=== PATIENT | female | born 1980 | race Caucasian/White ===

== ENCOUNTER → 2020-08-22 | Outpatient (CLI) | payer BC ==
--- NOTE | 2020-08-23 07:22 | XR ---
Lumbosacral spine HISTORY: M 54.89 5 views of lumbosacral spine Lumbar vertebral bodies show preserved height, alignment, and bone mineralization. Loss of disc heigh t present especially L4-5 and L5-S1, there is multilevel spondylosis. Sclerosis present in the crew chief ior elements. No evident spondylolysis. IMPRESSION: Degenerative disc disease and facet arthropathy.
--- NOTE | 2020-08-23 07:23 | XR ---
Right foot HISTORY: Pain in heel, M 79.671 3 views of the right foot Mild degenerative change present at the metatarsophalangeal joint of the first digit of the right gaye t. Bone mineralization and alignment are maintained. No fracture or dislocation. There is a plantar c alcaneal spur. IMPRESSION: Plantar spur
--- NOTE | 2020-08-23 08:44 | MM ---
Reason for exam: clinical finding. History: Took hormonal contraceptives for 6 months beginning at age 18. Physical Findings: Nurse did not find any significant physical abnormalities on exam. MG 3D Diag Mammo W/Cad JOSE Bilateral CC, MLO, and XCCL view(s) were taken. The breast tissue is heterogeneously dense. This may lower the sensitivity of mammography. Finding: There is a 10 mm mass. These results were verbally communicated with the patient and result sheet given to the patient on 08/22/20. ASSESSMENT: Incomplete: need additional imaging evaluation, BI-RAD 0 RECOMMENDATION: Ultrasound of both breasts.
--- NOTE | 2020-08-23 08:45 | USB ---
Reason for exam: additional evaluation requested from abnormal screening. History: Took hormonal contraceptives for 6 months beginning at age 18. US Breast Workup Limited JOSE Right limited breast ultrasound including focal area of concern, retroareolar and axilla demonstrates no cystic or solid lesion seen. Left limited breast ultrasound including focal area of concern, retroareolar and axilla demonstrates a 2 x 3 x 2mm round, cystic lesion at 9 o'clock. These results were verbally communicated with the patient and result sheet given to the patient on 08/22/20. ASSESSMENT: Benign, BI-RAD 2 RECOMMENDATION: Routine screening mammogram of both breasts in 1 year.
== END | disposition home or self-care (01) ==
LOC: RADMAMWWP 15:24
PROVIDERS: ATTEND Internal Medicine
DX: M51.37 Other intervertebral disc degeneration, lumbosacral region (principal); M47.817 Spondylosis without myelopathy or radiculopathy, lumbosacral region; R92.8 Other abnormal and inconclusive findings on diagnostic imaging of breast; N63.0 Unspecified lump in unspecified breast; M54.89 Other dorsalgia; M79.671 Pain in right foot; M77.51 Other enthesopathy of right foot and ankle
CPT/HCPCS: 72110; 77062; 77066

== ENCOUNTER → 2022-08-12 | Outpatient (CLI) | payer BC ==
--- NOTE | 2022-08-12 14:26 | MM ---
Reason for Exam: Clinical finding. Last mammogram was performed 1 year(s) and 11 month(s) ago. Patient History: Menarche at age 13. First Full-Term at age 20. Hormonal Contraceptives for 6 months from age 18 until age 18. Risk Values: Paulina 5 year model risk: 0.5%. NCI Lifetime model risk: 9.0%. Prior Study Comparison: 08/22/2020 Bilateral Diagnostic Mammogram, [facility]. 08/22/2020 Bilateral Diagnostic Ultrasound, [facility]. Tissue Density: The breast tissue is heterogeneously dense. This may lower the sensitivity of mammography. Findings: Analyzed By CAD. No worrisome cluster calcifications within either breast. Stable focal asymmetry within the left breast. No new suspicious mass. Patient reports right-sided breast pain. Overall Assessment: Incomplete: need additional imaging evaluation, BI-RAD 0 Management: Diagnostic Breast Ultrasound of the right breast. A clinical breast exam by your physician is recommended on an annual basis and results should be correlated with mammographic findings. This exam should not preclude additional follow-up of suspicious palpable abnormalities. Results were given to the patient verbally at the time of exam. Electronically signed and approved by: Jamie Siegel D.O.
--- NOTE | 2022-08-12 15:36 | USB ---
Reason for Exam: Clinical finding. Patient History: Menarche at age 13. First Full-Term at age 20. Hormonal Contraceptives for 6 months from age 18 until age 18. Risk Values: Paulina 5 year model risk: 0.5%. NCI Lifetime model risk: 9.0%. Technique: Method: Targeted. Prior Study Comparison: 08/22/2020 Bilateral Diagnostic Mammogram, [facility]. Findings: The upper outer quadrant of the right breast and the axilla of the right breast were scanned. Targeted ultrasound of the right breast in the patient's region of pain was obtained from 9-12 o'clock with evaluation of the axilla. Benign-appearing lymph node in the right axilla. No solid or cystic mass identified.. Overall Assessment: Benign, BI-RAD 2 Management: Screening Mammogram of both breasts in 1 year. A clinical breast exam by your physician is recommended on an annual basis and results should be correlated with mammographic findings. This exam should not preclude additional follow-up of suspicious palpable abnormalities. ??Results were given to the patient verbally at the time of exam. Electronically signed and approved by: Jamie Siegel D.O.
== END | disposition home or self-care (01) ==
LOC: RADMAMWWP 13:27
PROVIDERS: ATTEND Family Medicine
DX: N64.4 Mastodynia (principal)
CPT/HCPCS: 77062; 77066

== ENCOUNTER → 2023-12-23 | Outpatient (CLI) | payer BC, OTHER ==
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
== END | disposition home or self-care (01) ==
LOC: RADCTMAIN 13:09
PROVIDERS: ATTEND Podiatrist Foot & Ankle Surgery
DX: M85.871 Other specified disorders of bone density and structure, right ankle and foot (principal); R60.0 Localized edema; S92.901K Unspecified fracture of right foot, subsequent encounter for fracture with nonunion

== ENCOUNTER → 2024-02-08 | Outpatient (CLI) | payer BC ==
--- NOTE | 2024-02-08 10:16 | MM ---
Reason for Exam: Clinical finding. Last mammogram was performed 1 year(s) and 6 month(s) ago. Patient History: Menarche at age 13. First Full-Term at age 20. Hormonal Contraceptives for 6 months from age 18 until age 18. Last menstrual period: 02/06/2024 Risk Values: Paulina 5 year model risk: 0.6%. NCI Lifetime model risk: 8.8%. Prior Study Comparison: 08/22/2020 Bilateral Diagnostic Mammogram, [facility]. 08/22/2020 Bilateral Diagnostic Ultrasound, [facility]. 08/12/2022 Right US breast limited RT, [facility]. 08/12/2022 Bilateral MG 3D diag mammo w/cad JOSE, [facility]. Tissue Density: The breasts are heterogeneously dense, which may obscure small masses. Findings: Analyzed By CAD. No evidence for mass or distortion. No suspicious microcalcifications. Overall Assessment: Incomplete: need additional imaging evaluation, BI-RAD 0 Management: Diagnostic Breast Ultrasound of the right breast. . Results were given to the patient verbally at the time of exam. Patient should continue monthly self-breast exams. A clinical breast exam by your physician is recommended on an annual basis. This exam should not preclude additional follow-up of suspicious palpable abnormalities. Note on Paulina scores and lifetime risk: 1. A Paulina score greater than 3% is considered moderate risk. If this is the case, consider specialist referral to assess eligibility for a risk reducing agent. 2. If overall lifetime risk for the development of breast cancer is 20% or higher, the patient may qualify for future screening with alternating mammogram and breast MRI. Electronically signed and approved by: Nahun Celaya M.D. Radiologis
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
== END | disposition home or self-care (01) ==
LOC: RADMAMWWP 09:46
PROVIDERS: ATTEND Family Medicine
DX: R92.333 Mammographic heterogeneous density, bilateral breasts (principal); N64.4 Mastodynia
CPT/HCPCS: 77062; 77066

== ENCOUNTER → 2024-03-26 | Outpatient (CLI) | payer BC ==
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
== END | disposition home or self-care (01) ==
LOC: RADMRIMAIN 11:34
PROVIDERS: ATTEND Psychiatry & Neurology Neurology
DX: M50.30 Other cervical disc degeneration, unspecified cervical region (principal); M47.892 Other spondylosis, cervical region; F07.81 Postconcussional syndrome; G43.909 Migraine, unspecified, not intractable, without status migrainosus
CPT/HCPCS: 72156; A9585

== ENCOUNTER → 2024-03-26 | Outpatient (CLI) | payer BC ==
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
== END | disposition home or self-care (01) ==
LOC: RADMRIMAIN 11:36
PROVIDERS: ATTEND Family Medicine
DX: R26.89 Other abnormalities of gait and mobility (principal)
CPT/HCPCS: 70553; A9585

== ENCOUNTER → 2024-06-30 | Outpatient (CLI) | payer BC ==
--- NOTE | 2024-06-30 08:17 | USB ---
Reason for Exam: Follow-up at short interval from prior study. Patient History: Menarche at age 13. First Full-Term at age 20. Hormonal Contraceptives for 6 months from age 18 until age 18. Risk Values: Paulina 5 year model risk: 0.6%. NCI Lifetime model risk: 8.8%. Technique: Method: Targeted. Prior Study Comparison: 08/22/2020 Bilateral Diagnostic Mammogram, [facility]. 08/12/2022 Bilateral MG 3D diag mammo w/cad JOSE, [facility]. 02/08/2024 Bilateral MG 3D diag mammo w/cad JOSE, [facility]. Findings: The upper inner quadrant of the right breast, the axilla of the right breast and the retroareolar of the right breast were scanned. Complex cystic lesions are redemonstrated. The right 1:00 position 15 cm from the nipple there is a complex cyst measuring 0.9 x 0.6 cm versus 1.0 x 0.6 cm previously. Additional complex cyst noted at 12:00 15 cm from the nipple measuring 0.7 x 0.8 cm. Additional smaller cysts are noted. No solid masses detected. Overall Assessment: Probably benign, BI-RAD 3 Management: Diagnostic Breast Ultrasound of the right breast in 6 months. A clinical breast exam by your physician is recommended on an annual basis and results should be correlated with mammographic findings. This exam should not preclude additional follow-up of suspicious palpable abnormalities. Results were given to the patient verbally at the time of exam. Electronically signed and approved by: Nahun Celaya M.D. Radiologis
--- NOTE | 2024-06-30 12:22 | US ---
EXAMINATION TYPE: US thyroid st tissue head/neck DATE OF EXAM: 06/30/2024 COMPARISON: NONE CLINICAL INDICATION: Female, 43 years old with history of R92.8 ABNORMAL MAMM R22.1 NECK NODULE; Pal pable left neck for 2 months TECHNIQUE: FINDINGS: Scanned area of concern, left neck, superficial, vein noted No sizable solid or cystic mass. IMPRESSION: No sizable solid or cystic mass by ultrasound. A prominent superficial vein noted. There is a clinically palpable suspicious lesion would recommend CT scan of the neck.
== END | disposition home or self-care (01) ==
LOC: RADUSWWP 07:41
PROVIDERS: ATTEND Family Medicine
DX: R92.8 Other abnormal and inconclusive findings on diagnostic imaging of breast (principal)
CPT/HCPCS: 76536

== ENCOUNTER → 2024-07-07 | Outpatient (CLI) | payer BC ==
--- NOTE | 2024-07-07 08:23 | CT ---
EXAMINATION TYPE: CT soft tissue neck wo con CT DLP: 459.30 mGycm, Automated exposure control for dose reduction was used. DATE OF EXAM: 07/07/2024 6:54 AM COMPARISON: None. CLINICAL INDICATION: Female, 43 years old with history of R22.1 Nodule of neck; PHH, Nodule of neck x 2 months TECHNIQUE: Standard enhanced CT of the neck. Axial sections with coronal and sagittal reformats were obtained. Contrast used: mL of , (None if empty) Oral contrast used: (None if empty) FINDINGS: Brain: Visualized portions are grossly unremarkable. Orbits: Unremarkable Sinuses: Grossly unremarkable. Spaces of the neck: Marker on the left neck with prominent vascular structures and nonenlarged 6 mm lymph node suggested. Musculoskeletal: No acute osseous pathology. Lymph nodes: Multiple nonenlarged lymph nodes are seen along both anterior chains of the neck. Vascular structures: Visualized major arteries are patent without evidence of aneurysm. Thoracic Inlet/airway: Airway is patent. The lung apices are clear. Soft tissues/Thyroid: Thyroid and remainder of the soft tissues are unremarkable. Other: none. IMPRESSION Palpable marker correlates with possibly a nonenlarged lymph node versus vascular structures in this area. No suspicious masses. [facility], , 07/07/2024 8:20 AM
== END | disposition home or self-care (01) ==
LOC: RADCTMAIN 06:32
PROVIDERS: ATTEND Family Medicine
DX: R22.1 Localized swelling, mass and lump, neck (principal)
CPT/HCPCS: 70490

== ENCOUNTER → 2024-09-14 | Outpatient (CLI) | payer BC, OTHER ==
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
== END | disposition home or self-care (01) ==
LOC: RADMRIMAIN 18:45
PROVIDERS: ATTEND Podiatrist Foot & Ankle Surgery
DX: S92.811A Other fracture of right foot, initial encounter for closed fracture (principal); G57.61 Lesion of plantar nerve, right lower limb; R60.9 Edema, unspecified; V89.2XXA Person injured in unspecified motor-vehicle accident, traffic, initial encounter